=== PATIENT | male | born 1980 | race Caucasian/White ===

== ENCOUNTER 2016-02-29 21:52 | Emergency (ER) | payer MEDICAID ==
[~2016-02-29 21:52] MED LIST: HYDROmorphONE/DILAUDID 1 MG/ML SYR ONE
--- NOTE | 2016-02-29 23:06 | EDPHY ---
H & P Stated Complaint: voluntary for ETOH, depression Time Seen by Provider: 02/29/16 22:00 HPI/ROS: CHIEF COMPLAINT: alcohol intoxication HISTORY OF PRESENT ILLNESS: 35-year-old male presents emergency department by EMS and police with alcohol intoxication. Patient was telling his roommate that he did not want to live anymore. EMS brought him into the emergency department. Patient denies suicidal ideations, homicidal ideations, auditory and visual hallucinations. He states he never told anyone he was suicidal. He denies drug use. Admits to drinking alcohol today. He has no complaints. REVIEW OF SYSTEMS: A comprehensive 10 point review of systems is otherwise negative aside from elements mentioned in the history of present illness. Physical Exam Gen: Alert and Oriented, NAD HEENT: PERRL, moist mucous membranes NECK: no meningismus CV: regular rate and regular rhythm PULM: CTAB, no wheezes ABDOMEN: soft, non tender to palpation, BS present BACK: No CVA tenderness NEURO: Neurologically grossly intact, no tongue fasciculations, no tremors. EXTREMITIES: normal appearing SKIN: no rash or break in skin on exposed skin PSYCH: answers questions appropriately, denies suicidal ideation, homicidal ideation, auditory and visual hallucination Source: Patient, Police, EMS - Personal History Current Tetanus/Diphtheria Vaccine: Unsure Current Tetanus Diphtheria and Acellular Pertussis (TDAP): Unsure - Medical/Surgical History Hx Asthma: No Hx Chronic Respiratory Disease: No Hx Diabetes: No Hx Cardiac Disease: No Hx Renal Disease: No Hx Cirrhosis: No Hx Alcoholism: Yes Hx HIV/AIDS: No Hx Splenectomy or Spleen Trauma: No Other PMH: depression, seizures - Social History Smoking Status: Current every day smoker Constitutional: Initial Vital Signs Temperature (C) 36.4 C 02/29/16 22:05 Heart Rate 84 02/29/16 22:05 Respiratory Rate 18 02/29/16 22:05 Blood Pressure 123/70 H 02/29/16 22:05 O2 Sat (%) 95 02/29/16 22:05 O2 Delivery Mode Room Air Allergies/Adverse Reactions: No Known Allergies Allergy (Unverified 03/15/15 15:34) Home Medications: Medication Instructions Recorded CLONAZEPAM [CLONAZEPAM] 0.5 - 1 mg PO DAILY PRN 03/15/15 Cyclobenzaprine [Flexeril] 10 mg PO TID 03/15/15 GABAPENTIN [GABAPENTIN] 600 mg PO TID 03/15/15 QUEtiapine FUMARATE [SEROquel] 300 mg PO DAILY 03/15/15 busPIRone [Buspar] 15 mg PO BID 03/15/15 Medical Decision Making ED Course/Re-evaluation: 35-year-old male presents emergency department by EMS for alcohol intoxication and reporting suicidal thoughts to his roommate. On arrival to the emergency department the patient denies any suicidal thoughts. He denies drug use. Breathalyzer is 0.208. Patient is awake, alert, he is unsure why he is in the ED or how he got here. He has slurred speech. 0000-[facility] He continues to deny suicidal ideations. He is given return precautions and [facility] follow-up information. Departure - Departure Disposition: Home, Routine, Self-Care Clinical Impression: Alcoholic intoxication Qualifiers: Complication of substance-induced condition: uncomplicated Qualifier Code: ( F10.120) Alcohol abuse with intoxication, uncomplicated Condition: Good Instructions: Alcohol Intoxication (ED) Additional Instructions: Stop drinking alcohol, return to the emergency department for any questions or concerns. Referrals: [facility] [Outside] - As per Instructions
[2016-03-01 00:26] VITALS: BP 129/84; PULSE 94; RESP 18; TEMP 98.1; O2SAT 97
== END 2016-03-01 00:26 | disposition home or self-care (01) ==
LOC: EDUNIT#
DX: F10.120 Alcohol abuse with intoxication, uncomplicated (principal); F17.200 Nicotine dependence, unspecified, uncomplicated
CPT/HCPCS: J1170

== ENCOUNTER 2016-03-01 02:10 | Emergency (ER) | payer MEDICAID ==
[2016-03-01 02:15] VITALS: RESP 16; TEMP 98.1
[2016-03-01] MEDS ORDERED: levETIRAcetam 500 MG TAB PO ONE (02:39)
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
[2016-03-01 06:55] VITALS: BP 117/83; PULSE 110; O2SAT 93
== END 2016-03-01 06:40 | disposition home or self-care (01) ==
LOC: EDUNIT#
DX: G40.909 Epilepsy, unspecified, not intractable, without status epilepticus (principal); F10.129 Alcohol abuse with intoxication, unspecified

== ENCOUNTER 2016-03-06 20:42 | Emergency (ER) | payer MEDICAID ==
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
[2016-03-06 20:56] VITALS: TEMP 97.9
[2016-03-06 21:41] LABS: ETHANOL SERUM 473 mg/dL (0-10)
[2016-03-06] MEDS ORDERED: MVI WITH VIT K 10 ML, FOLIC ACID 2.5 MG, THIAMINE HCL 100 MG, MAGNESIUM SULFATE 2 GM in... IV ONE (21:42)
[2016-03-06] MEDS ORDERED: NS 1,000 ML IV ONE (21:45)
[2016-03-07 06:27] VITALS: BP 110/75; PULSE 80; RESP 20; O2SAT 94
== END 2016-03-07 06:28 | disposition home or self-care (01) ==
LOC: EDUNIT#
DX: F10.120 Alcohol abuse with intoxication, uncomplicated (principal)
CPT/HCPCS: 96365; G0480; J3411

== ENCOUNTER 2016-04-06 19:33 | Emergency (ER) | payer MEDICAID ==
[~2016-04-06 19:33] MED LIST changes: -HYDROmorphONE/DILAUDID 1 MG/ML SYR ONE; +levETIRAcetam 500 MG TAB PO SCH
--- NOTE | 2016-04-06 19:51 | EDPHY ---
H & P Time Seen by Provider: 04/06/16 19:50 HPI/ROS: CHIEF COMPLAINT: Needs seizure medication. HISTORY OF PRESENT ILLNESS: The patient is a 35-year-old male with a history of seizure disorder who presents from the [facility] to receive seizure medications. He does not know what dose he takes. He last took Keppra last night. His last drink of alcohol was last night. He feels mildly tremulous. He has no other complaints at this time. No recent illness or fever. Past Medical/Surgical History: Seizure disorder. Alcoholism Social History: Alcohol abuse. Smoking Status: Unknown if ever smoked Physical Exam: General Appearance: Alert, pleasant Eyes: Pupils equal and round ENT, Mouth: Mucous membranes moist Neck: Normal inspection Respiratory: Lungs are clear to auscultation Cardiovascular: Regular rate and rhythm Neurological: A&O, nonfocal, normal gait Skin: Warm and dry Extremities: normal inspection Psychiatric: Mood and affect normal Constitutional: Initial Vital Signs Temperature (C) 36.2 C 04/06/16 19:40 Heart Rate 88 04/06/16 19:40 Respiratory Rate 16 04/06/16 19:40 Blood Pressure 149/98 H 04/06/16 19:40 O2 Sat (%) 96 04/06/16 19:40 O2 Delivery Mode Room Air Allergies/Adverse Reactions: No Known Allergies Allergy (Verified 03/01/16 02:15) Home Medications: Medication Instructions Recorded CLONAZEPAM [CLONAZEPAM] 0.5 - 1 mg PO DAILY PRN 03/15/15 Cyclobenzaprine [Flexeril] 10 mg PO TID 03/15/15 GABAPENTIN [GABAPENTIN] 600 mg PO TID 03/15/15 QUEtiapine FUMARATE [SEROquel] 300 mg PO DAILY 03/15/15 busPIRone [Buspar] 15 mg PO BID 03/15/15 Gabapentin [Neurontin 300 MG (*)] 600 mg PO BID 12/06/15 QUEtiapine FUMARATE [Seroquel 300 mg PO HS 12/06/15 300mg (*)] busPIRone [Buspar (*)] 15 mg PO BID 12/06/15 clonazePAM [klonoPIN (*)] 0.5 - 1 mg PO DAILY PRN 12/06/15 levETIRAcetam [Keppra 500 mg (*)] 500 mg PO BID 12/06/15 levETIRAcetam [Keppra 500 mg (*)] 500 mg PO BID #14 tab 12/06/15 levETIRAcetam [Keppra 500 mg (*)] 500 mg PO BID #20 tab 04/06/16 AZITHROMYCIN [Z-PACK] 250 mg PO DAILY #4 tab 04/09/16 Ibuprofen 800 mg PO TID PRN #20 tablet 04/09/16 Medical Decision Making ED Course/Re-evaluation: Keppra 50mg orally given. I wrote and dispensed an rx for Keppra and for Librium. - Data Points Medications Given: Discontinued Medications Chlordiazepoxide (Librium 25 Mg Prepack#6) 1 btl TAKEHOME EDNOW ONE Stop: 04/06/16 19:57 Last Admin: 04/06/16 20:08 Dose: 1 btl Levetiracetam (Keppra) 500 mg PO EDNOW ONE Stop: 04/06/16 19:58 Last Admin: 04/06/16 20:18 Dose: 500 mg Departure - Departure Disposition: Home, Routine, Self-Care Clinical Impression: Medication requested, Seizure disorder Alcohol withdrawal Qualifiers: Complication of substance-induced condition: uncomplicated Qualified Code(s): F10.230 - Alcohol dependence with withdrawal, uncomplicated Condition: Good Instructions: Chlordiazepoxide/Clidinium (By mouth), Alcohol Withdrawal (ED) Additional Instructions: Take Keppra as prescribed. Take Librium 1 tab every 6 hours as needed. Follow up at the [facility] as discussed. Return for any serious worsening of condition. Referrals: [facility] [Outside] - As per Instructions Prescriptions: levETIRAcetam [Keppra 500 mg (*)] 500 mg PO BID #20 tab Report Scribed for: Renea Germain Report Scribed by: Tong Pink Date of Report: 04/06/16 Time of Report: 19:51 Physician Review and Approval Statement: 04/06/16 19:51 Portions of this note were transcribed by a medical aides teacher. I personally performed a history, physical exam, medical decision making, and confirmed accuracy of information the transcribed note.
[2016-04-06] MEDS ORDERED: CHLORDIAZEPOXIDE 25MG PREPK#6 BTL TAKEHOME ONE (19:56)
[2016-04-06] MEDS ORDERED: levETIRAcetam 500 MG TAB PO ONE (19:57)
[2016-04-06 20:03] VITALS: RESP 16; TEMP 97.2; O2SAT 96
[2016-04-07 05:34] VITALS: BP 145/71; PULSE 87
== END 2016-04-06 20:18 | disposition home or self-care (01) ==
DX: G40.909 Epilepsy, unspecified, not intractable, without status epilepticus (principal); F10.230 Alcohol dependence with withdrawal, uncomplicated

== ENCOUNTER 2016-04-09 14:40 | Emergency (ER) | payer MEDICAID ==
[~2016-04-09 14:40] MED LIST changes: +AZITHROMYCIN 250 MG TAB PO SCH; +IBUPROFEN 800 MG TAB PO SCH; -levETIRAcetam 500 MG TAB PO SCH
[2016-04-09 14:45] VITALS: RESP 18; TEMP 100.2
[2016-04-09] MEDS ORDERED: DEXAMETHASONE 10 MG/ML VIAL PO ONE (15:47)
[2016-04-09] MEDS ORDERED: AZITHROMYCIN 250 MG TAB PO ONE (15:47)
[2016-04-09] MEDS ORDERED: IBUPROFEN 200 MG TAB PO ONE (15:48)
--- NOTE | 2016-04-09 15:52 | EDPHY ---
H & P Stated Complaint: 3 days headache, sore throat, sweats, fevers Time Seen by Provider: 04/09/16 15:43 HPI/ROS: CHIEF COMPLAINT: Sore throat, headache HISTORY OF PRESENT ILLNESS: Patient is a 35-year-old man with a history of schizophrenia , alcohol abuse and seizures who comes to the emergency department complaining of a sore throat for last 3 days. He states that he is starting to have a headache as well. He does not have any neurologic deficits. No vision changes. No sinus congestion. No cough or shortness of breath. No chest pain or abdominal pain. REVIEW OF SYSTEMS: Constitutional: denies: chills, fever, recent illness, recent injury EENTM: See HPI,denies: blurred vision, double vision, nose congestion Respiratory: denies: cough, shortness of breath Cardiac: denies: chest pain, irregular heart rate, lightheadedness, palpitations Gastrointestinal/Abdominal: denies: abdominal pain, diarrhea, nausea, vomiting, blood streaked stools Genitourinary: denies: dysuria, frequency, hematuria, pain Musculoskeletal: denies: joint pain, muscle pain Skin: denies: lesions, rash, jaundice, bruising Neurological: denies: headache, numbness, paresthesia, tingling, dizziness, weakness Hematologic/Lymphatic: denies: blood clots, easy bleeding, easy bruising Immunologic/allergic: denies: HIV/AIDS, transplant EXAM: GENERAL: Well-appearing, well-nourished and in no acute distress. HEAD: Atraumatic, normocephalic. EYES: Pupils equal round and reactive to light, extraocular movements intact, sclera anicteric, conjunctiva are normal. ENT: Erythematous pharynx, exudate, no visible abscess or distortion, TMs normal, nares patent, Moist mucous membranes. NECK: Normal range of motion, supple without lymphadenopathy or JVD. LUNGS: Breath sounds clear to auscultation bilaterally and equal. No wheezes rales or rhonchi. HEART: Regular rate and rhythm without murmurs, rubs or gallops. ABDOMEN: Soft, nontender, normoactive bowel sounds. No guarding, no rebound. No masses appreciated. BACK: No CVA tenderness, no spinal tenderness, step-offs or deformities EXTREMITIES: Normal range of motion, no pitting or edema. No clubbing or cyanosis. NEUROLOGICAL: Cranial nerves II through XII grossly intact. Normal speech, normal gait. 5/5 strength, normal movement in all extremities, normal sensation PSYCH: Normal mood, normal affect. SKIN: Warm, dry, normal turgor, no visible rashes or lesions. Source: Patient Exam Limitations: No limitations - Personal History Current Tetanus Diphtheria and Acellular Pertussis (TDAP): Yes - Medical/Surgical History Hx Asthma: No Hx Chronic Respiratory Disease: No Hx Diabetes: No Hx Cardiac Disease: No Hx Renal Disease: No Hx Cirrhosis: No Hx Alcoholism: No Hx HIV/AIDS: No Hx Splenectomy or Spleen Trauma: No Other PMH: depression, seizures, ETOH ABUSE , anxiety, schizoaffetive - Family History Significant Family History: No pertinent family hx - Social History Smoking Status: Current every day smoker Alcohol Use: Sober Drug Use: None Constitutional: Initial Vital Signs Temperature (C) 37.9 C 04/09/16 14:43 Heart Rate 118 H 04/09/16 14:43 Respiratory Rate 18 04/09/16 14:43 Blood Pressure 105/77 04/09/16 14:43 O2 Sat (%) 96 04/09/16 14:43 O2 Delivery Mode Room Air Allergies/Adverse Reactions: No Known Allergies Allergy (Verified 03/01/16 02:15) Home Medications: Medication Instructions Recorded CLONAZEPAM [CLONAZEPAM] 0.5 - 1 mg PO DAILY PRN 03/15/15 Cyclobenzaprine [Flexeril] 10 mg PO TID 03/15/15 GABAPENTIN [GABAPENTIN] 600 mg PO TID 03/15/15 QUEtiapine FUMARATE [SEROquel] 300 mg PO DAILY 03/15/15 busPIRone [Buspar] 15 mg PO BID 03/15/15 Gabapentin [Neurontin 300 MG (*)] 600 mg PO BID 12/06/15 QUEtiapine FUMARATE [Seroquel 300 mg PO HS 12/06/15 300mg (*)] busPIRone [Buspar (*)] 15 mg PO BID 12/06/15 clonazePAM [klonoPIN (*)] 0.5 - 1 mg PO DAILY PRN 12/06/15 levETIRAcetam [Keppra 500 mg (*)] 500 mg PO BID 12/06/15 levETIRAcetam [Keppra 500 mg (*)] 500 mg PO BID #14 tab 12/06/15 levETIRAcetam [Keppra 500 mg (*)] 500 mg PO BID #20 tab 04/06/16 AZITHROMYCIN [Z-PACK] 250 mg PO DAILY #4 tab 04/09/16 Ibuprofen 800 mg PO TID PRN #20 tablet 04/09/16 Medical Decision Making ED Course/Re-evaluation: Patient clearly has pharyngitis likely strep throat. I will treat him with antibiotics, steroids and pain medication. He is happy with this plan and declines further workup or treatment at this time. Discussed indications for returning to the emergency department. He is eating and drinking without any difficulty here in the emergency department. No stridor or difficulty breathing. He is requesting a prescription for ibuprofen as well. Differential Diagnosis: Partial list of the Differential diagnosis considered include but were not limited to; strep throat, pharyngitis, tonsillitis, peritonsillar abscess and although unlikely based on the history and physical exam, I also considered meningitis, phlegmon, intracranial abscess, thrombosis. I discussed these differential diagnoses and the plan with the patient as well as the usual and expected course. The patient understands that the diagnosis is provisional and that in medicine we are not always correct and that further workup is often warranted. Usual and customary warnings were given. All of the patient's questions were answered. The patient was instructed to return to the emergency department should the symptoms at all worsen or return, otherwise to followup with the physician as we discussed. - Data Points Medications Given: Discontinued Medications Azithromycin (Zithromax) 500 mg PO EDNOW ONE PRN Reason: Protocol Stop: 04/09/16 15:48 Last Admin: 04/09/16 15:54 Dose: 500 mg Dexamethasone (Decadron Injection) 10 mg PO EDNOW ONE Stop: 04/09/16 15:48 Last Admin: 04/09/16 15:54 Dose: 10 mg Ibuprofen (Motrin) 800 mg PO EDNOW ONE Stop: 04/09/16 15:49 Last Admin: 04/09/16 15:54 Dose: 800 mg Departure - Departure Disposition: Home, Routine, Self-Care Clinical Impression: Pharyngitis Qualifiers: Pharyngitis/tonsillitis etiology: unspecified etiology Qualified Code(s): J02.9 - Acute pharyngitis, unspecified Condition: Fair Instructions: Pharyngitis (ED) Referrals: [facility] [Other] - As per Instructions Prescriptions: AZITHROMYCIN [Z-PACK] 250 mg PO DAILY #4 tab Ibuprofen 800 mg PO TID PRN #20 tablet PRN Reason: Pain, Moderate
[2016-04-09 16:12] VITALS: BP 157/79; PULSE 108; O2SAT 98
== END 2016-04-09 16:12 | disposition home or self-care (01) ==
DX: J02.9 Acute pharyngitis, unspecified (principal); F17.200 Nicotine dependence, unspecified, uncomplicated

== ENCOUNTER 2016-04-14 19:31 | Emergency (ER) | payer MEDICAID ==
[~2016-04-14 19:31] MED LIST changes: -AZITHROMYCIN 250 MG TAB PO SCH; +IBUPROFEN 600 MG TAB PO SCH; -IBUPROFEN 800 MG TAB PO SCH
[2016-04-14 19:36] VITALS: RESP 16; TEMP 97.9
--- NOTE | 2016-04-14 20:08 | EDPHY ---
H & P Smoking Status: Current every day smoker Time Seen by Provider: 04/14/16 19:54 HPI/ROS: CHIEF COMPLAINT: Chronic neck pain, aphthous ulcer lower lip HISTORY OF PRESENT ILLNESS: 35-year-old male presents to the emergency department by private vehicle complaining of painful sore to the inside of his lower lip for the last 3 or 4 days. He has been using salt water and peroxide without relief. Patient denies dysphagia. Denies facial swelling. No fevers or chills. No URI symptoms. No chest pain or difficulty breathing. Patient also has a history of chronic neck pain and has been out of his cyclobenzaprine pain for spasms over last 1 month. He feels the same ongoing chronic neck pain. He denies any new trauma or injury. He denies back pain. Denies paresthesias in his upper lower extremities. Denies feelings of weakness in his upper extremities. REVIEW OF SYSTEMS: Constitutional: No fever, no chills. Eyes: No double or blurry vision. ENT: Painful sores in mouth as above. No sore throat. Respiratory: No cough, no shortness of breath. Cardiac: No chest pain. Gastrointestinal: No abdominal pain, vomiting or diarrhea. Genitourinary: No dysuria. Musculoskeletal: Chronic neck pain as above. No back pain. Skin: No rashes. Neurological: No headache. (MelodyDawn liang) Past Medical/Surgical History: Depression, anxiety, schizoaffective disorder, alcohol abuse, chronic neck and back pain (MelodyDawn liang) Social History: Homeless, currently staying at the [facility] in the transition program. (Dawn Judge) Physical Exam: General Appearance: Alert, no distress. Eyes: Pupils equal and round. Extraocular motions are all intact. ENT: Mouth: Mucous membranes moist. Small ulcerative lesion noted to the frenulum of the inside of the lower lip. No surrounding redness. No bleeding. Poor dentition, missing numerous teeth. Respiratory: No wheezing, rhonchi, or rales, lungs are clear to auscultation. Cardiovascular: Regular rate and rhythm. Gastrointestinal: Abdomen is soft and nontender, no masses, no rebound or guarding, bowel sounds normal. Neurological: Alert and oriented x 3, cranial nerves II through XII grossly intact Skin: Warm and dry, no rashes. Musculoskeletal: Nontender to palpate along the cervical, thoracic or lumbar spine. Neck is supple. In a wheelchair. Extremities: Full range of motion and no peripheral edema. Psychiatric: Patient is oriented X 3, there is no agitation. (Dawn Judge) Constitutional: Initial Vital Signs Temperature (C) 36.6 C 04/14/16 19:33 Heart Rate 70 04/14/16 19:33 Respiratory Rate 16 04/14/16 19:33 Blood Pressure 138/100 H 04/14/16 19:33 O2 Sat (%) 99 04/14/16 19:33 O2 Delivery Mode Room Air Allergies/Adverse Reactions: No Known Allergies Allergy (Verified 03/01/16 02:15) Home Medications: Medication Instructions Recorded CLONAZEPAM [CLONAZEPAM] 0.5 - 1 mg PO DAILY PRN 03/15/15 Cyclobenzaprine [Flexeril] 10 mg PO TID 03/15/15 GABAPENTIN [GABAPENTIN] 600 mg PO TID 03/15/15 QUEtiapine FUMARATE [SEROquel] 300 mg PO DAILY 03/15/15 busPIRone [Buspar] 15 mg PO BID 03/15/15 Gabapentin [Neurontin 300 MG (*)] 600 mg PO BID 12/06/15 QUEtiapine FUMARATE [Seroquel 300 mg PO HS 12/06/15 300mg (*)] busPIRone [Buspar (*)] 15 mg PO BID 12/06/15 clonazePAM [klonoPIN (*)] 0.5 - 1 mg PO DAILY PRN 12/06/15 levETIRAcetam [Keppra 500 mg (*)] 500 mg PO BID 12/06/15 levETIRAcetam [Keppra 500 mg (*)] 500 mg PO BID #14 tab 12/06/15 levETIRAcetam [Keppra 500 mg (*)] 500 mg PO BID #20 tab 04/06/16 AZITHROMYCIN [Z-PACK] 250 mg PO DAILY #4 tab 04/09/16 Ibuprofen 800 mg PO TID PRN #20 tablet 04/09/16 Cyclobenzaprine [Flexeril] 10 mg PO TIDPRN PRN #12 tab 04/14/16 Ibuprofen 600 mg PO TID PRN #30 tablet 04/14/16 Medical Decision Making ED Course/Re-evaluation: 35-year-old male presents with painful sores inside his mouth. Clinically I think this patient has an aphthous ulcer. I recommended using [id number] Orajel or Zilactin topically. I encouraged him to return if he developed facial swelling, increasing pain, fever, purulent drainage or any other signs of infection. The patient has a history of chronic neck and back pain. He is requesting prescription for cyclobenzaprine. I do not think x-rays are indicated. The patient has no new reported trauma. (Dawn Judge) This patient was primarily evaluated and management physician phlebotomist lab assistant. I have reviewed the chart and agree with the plan of care. I am the secondary supervising physician. (Wendy Newman) Differential Diagnosis: Neck pain including but not limited to muscular pain, herniated disc, spine fracture (Dawn Judge) - Data Points Medications Given: Discontinued Medications Cyclobenzaprine HCl (Flexeril 10 Mg Prepack#3) [facility] Stop: 04/14/16 20:13 Last Admin: 04/14/16 20:30 Dose: 1 btl Departure - Departure Disposition: Home, Routine, Self-Care Clinical Impression: Oral aphthous ulcer, Chronic neck pain Condition: Good Instructions: Cyclobenzaprine (By mouth), Canker Sores (ED), Neck Pain (ED) Additional Instructions: Ibuprofen 600 mg every 8 hours as needed for pain. Cyclobenzaprine as needed for muscular spasm. Return to the emergency department if you developed difficulty swallowing, facial swelling, fevers or chills, or if you feel worse in any way. Referrals: Bonny Camp MD [Medical Doctor] - 2-3 days, if not improved (Primary care provider probation counselor) Prescriptions: Cyclobenzaprine [Flexeril] 10 mg PO TIDPRN PRN #12 tab PRN Reason: Spasms Ibuprofen 600 mg PO TID PRN #30 tablet PRN Reason: Pain, Moderate
[2016-04-14] MEDS ORDERED: CYCLOBENZAPRINE 10MG PREPACK#3 BTL TAKEHOME ONE (20:12)
[2016-04-14 21:23] VITALS: BP 122/74; PULSE 71; O2SAT 96
== END 2016-04-14 21:24 | disposition home or self-care (01) ==
DX: M54.2 Cervicalgia (principal); G89.29 Other chronic pain; K12.0 Recurrent oral aphthae

== ENCOUNTER 2016-11-03 17:57 | Emergency (ER) | payer MEDICAID ==
--- NOTE | 2016-11-03 18:30 | EDPHY ---
H & P Stated Complaint: ETOH, possibly heroin? Source: Patient Exam Limitations: No limitations - Personal History Current Tetanus/Diphtheria Vaccine: Unsure Current Tetanus Diphtheria and Acellular Pertussis (TDAP): Unsure - Medical/Surgical History Hx Asthma: No Hx Chronic Respiratory Disease: No Hx Diabetes: No Hx Cardiac Disease: No Hx Renal Disease: No Hx Cirrhosis: No Hx Alcoholism: No Hx HIV/AIDS: No Hx Splenectomy or Spleen Trauma: No Other PMH: depression, epilepsy, ETOH ABUSE , anxiety, schizoaffective - Family History Significant Family History: No pertinent family hx - Social History Smoking Status: Current every day smoker Alcohol Use: Heavy Time Seen by Provider: 11/03/16 18:21 HPI/ROS: CHIEF COMPLAINT: Unresponsive HISTORY OF PRESENT ILLNESS: The patient is a 36-year-old man who [place] unresponsive by bystanders. Police arrived and were able to get him to arouse minimally with stimulation. He was given 4 mg of IV Narcan and had a moderate response according to EMS. They suspect alcohol intoxication. The patient is not been cooperative with questioning. REVIEW OF SYSTEMS: Unable to obtain secondary to condition EXAM: GENERAL: Thin, well-nourished and in no acute distress. Urinated on bed and floor HEAD: Atraumatic, normocephalic. EYES: Pupils equal round and reactive to light, extraocular movements intact, sclera anicteric, conjunctiva are normal. ENT: TMs normal, nares patent, oropharynx clear without exudates. Moist mucous membranes. NECK: Normal range of motion, supple without lymphadenopathy or JVD. LUNGS: Breath sounds clear to auscultation bilaterally and equal. No wheezes rales or rhonchi. HEART: Regular rate and rhythm without murmurs, rubs or gallops. ABDOMEN: Soft, nontender, normoactive bowel sounds. No guarding, no rebound. No masses appreciated. BACK: No CVA tenderness, no spinal tenderness, step-offs or deformities EXTREMITIES: Normal range of motion, no pitting or edema. No clubbing or cyanosis. NEUROLOGICAL: Cranial nerves II through XII grossly intact. Normal speech 5/5 strength, normal movement in all extremities, normal sensation PSYCH: Will talk but will not answer questions states that it is not important and that we are Blah, Blah, Blah SKIN: Warm, dry, normal turgor, no visible rashes or lesions. (Aaron Quarles) Constitutional: Initial Vital Signs Temperature (C) 36.7 C 11/03/16 18:05 Heart Rate 99 11/03/16 18:05 Respiratory Rate 18 11/03/16 18:05 Blood Pressure 129/89 H 11/03/16 18:05 O2 Sat (%) 93 11/03/16 18:05 O2 Delivery Mode Room Air O2 (L/minute) 2 Allergies/Adverse Reactions: trazodone Allergy (Verified 11/03/16 18:07) Home Medications: Medication Instructions Recorded CLONAZEPAM [CLONAZEPAM] 0.5 - 1 mg PO DAILY PRN 03/15/15 Cyclobenzaprine [Flexeril] 10 mg PO TID 03/15/15 GABAPENTIN [GABAPENTIN] 600 mg PO TID 03/15/15 QUEtiapine FUMARATE [SEROquel] 300 mg PO DAILY 03/15/15 busPIRone [Buspar] 15 mg PO BID 03/15/15 Gabapentin [Neurontin 300 MG (*)] 600 mg PO BID 12/06/15 QUEtiapine FUMARATE [Seroquel 300 mg PO HS 12/06/15 300mg (*)] busPIRone [Buspar (*)] 15 mg PO BID 12/06/15 clonazePAM [klonoPIN (*)] 0.5 - 1 mg PO DAILY PRN 12/06/15 levETIRAcetam [Keppra 500 mg (*)] 500 mg PO BID 12/06/15 levETIRAcetam [Keppra 500 mg (*)] 500 mg PO BID #14 tab 12/06/15 levETIRAcetam [Keppra 500 mg (*)] 500 mg PO BID #20 tab 04/06/16 AZITHROMYCIN [Z-PACK] 250 mg PO DAILY #4 tab 04/09/16 Ibuprofen 800 mg PO TID PRN #20 tablet 04/09/16 Cyclobenzaprine [Flexeril] 10 mg PO TIDPRN PRN #12 tab 04/14/16 Ibuprofen 600 mg PO TID PRN #30 tablet 04/14/16 Haldol 11/03/16 Risperdal 11/03/16 Medical Decision Making ED Course/Re-evaluation: 1224 I received sign-out on this patient from Dr. Quarles. He was able to walk with a steady gait. He will be discharged with the police to [facility]. (Navya Lange) The patient will not answer any questions for me. I will attempt to obtain an alcohol level. It is unclear to me whether not he had a response to Narcan. We will observe. (Aaron Quarles) Differential Diagnosis: Partial list of the Differential diagnosis considered include but were not limited to; alcohol intoxication, heroin abuse and although unlikely based on the history and physical exam, I also considered head injury, infection, assault. (Aaron Quarles) Departure - Departure Disposition: Law Enforcement/Court/Snf Clinical Impression: Alcoholic intoxication Qualifiers: Complication of substance-induced condition: with delirium Qualified Code(s): F10.921 - Alcohol use, unspecified with intoxication delirium Condition: Good Instructions: Alcohol Intoxication (ED) Referrals: [facility] [Outside] - As per Instructions
[2016-11-03 18:51] LABS: ETHANOL SERUM 424 mg/dL (0-10)
[2016-11-04 00:33] VITALS: BP 112/67; PULSE 74; RESP 16; TEMP 98.2; O2SAT 93
== END 2016-11-04 00:33 ==
LOC: EDUNIT#
DX: F10.921 Alcohol use, unspecified with intoxication delirium (principal); F17.200 Nicotine dependence, unspecified, uncomplicated
CPT/HCPCS: G0480

== ENCOUNTER 2016-11-13 20:59 | Emergency (ER) | payer MEDICAID ==
[2016-11-13 21:11] VITALS: BP 153/108; PULSE 90; RESP 20; TEMP 98.8; O2SAT 98
--- NOTE | 2016-11-13 22:12 | EDPHY ---
H & P Stated Complaint: neck and back spasms, abcesssed tooth and skin sore on finger Time Seen by Provider: 11/13/16 21:50 HPI/ROS: Chief Complaint: Neck spasms, pain HPI: 36-year-old homeless male presenting from the [facility] with complaints of neck spasming and mouth pain. He has a history of chronic back pain usually takes Flexeril for this. He has been out of his medications and is complaining of neck pain. He is currently awaiting transfer to an inpatient treatment program is concerned he will not be with his medications there. He is also complaining of pain in his upper gums. He is a dentate in his upper teeth but has his resume placed in the frequently gets an abscess there. He has not been able to follow up with a dentist. He denies any fevers or chills. No nausea or vomiting. No new numbness or weakness. He has not been taking any ibuprofen as it upsets his stomach. Pain is currently a 7/10. ROS: 10 point Review of Systems is negative except as noted in the HPI. PMH: Chronic back pain, alcoholism Social History: Positive smoking, history of chronic polysubstance abuse, currently awaiting a trip to program. Family History: non-contributory Physical Exam: Gen: Awake, Alert, No Distress HEENT: Nose: no rhinorrhea Eyes: PERRLA, EOMI Mouth: Moist mucosa upper mouth a dentate. There is some tenderness and swelling in the left upper gumline. There is no fluctuance or pointing. Neck: Supple, no JVD, spot left paraspinal muscle spasm to palpation reproducing presenting complaint. No midline tenderness Chest: nontender, lungs clear to auscultation Heart: S1, S2 normal, no murmur Abd: Soft, non-tender, no guarding Back: no CVA tenderness, no midline tenderness Ext: no edema, non-tender, right finger there is a small lesion on his right middle finger without purulence or discharge approximately 5 mm Skin: no rash Neuro: CN II-XII intact, Sensation grossly intact, Strength 5/5 in bilateral upper and lower extremities - Personal History Current Tetanus Diphtheria and Acellular Pertussis (TDAP): Unsure - Medical/Surgical History Hx Asthma: No Hx Chronic Respiratory Disease: No Hx Diabetes: No Hx Cardiac Disease: No Hx Renal Disease: No Hx Cirrhosis: No Hx Alcoholism: No Hx HIV/AIDS: No Hx Splenectomy or Spleen Trauma: No Other PMH: depression, epilepsy, ETOH ABUSE , anxiety, schizoaffective - Social History Smoking Status: Current every day smoker Constitutional: Initial Vital Signs Temperature (C) 37.1 C 11/13/16 21:07 Heart Rate 90 11/13/16 21:07 Respiratory Rate 20 11/13/16 21:07 Blood Pressure 153/108 H 11/13/16 21:07 O2 Sat (%) 98 11/13/16 21:07 O2 Delivery Mode Room Air Allergies/Adverse Reactions: trazodone Allergy (Verified 11/13/16 21:07) Home Medications: Medication Instructions Recorded CLONAZEPAM [CLONAZEPAM] 0.5 - 1 mg PO DAILY PRN 03/15/15 Cyclobenzaprine [Flexeril] 10 mg PO TID 03/15/15 GABAPENTIN [GABAPENTIN] 600 mg PO TID 03/15/15 QUEtiapine FUMARATE [SEROquel] 300 mg PO DAILY 03/15/15 busPIRone [Buspar] 15 mg PO BID 03/15/15 Gabapentin [Neurontin 300 MG (*)] 600 mg PO BID 12/06/15 QUEtiapine FUMARATE [Seroquel 300 mg PO HS 12/06/15 300mg (*)] busPIRone [Buspar (*)] 15 mg PO BID 12/06/15 clonazePAM [klonoPIN (*)] 0.5 - 1 mg PO DAILY PRN 12/06/15 levETIRAcetam [Keppra 500 mg (*)] 500 mg PO BID 12/06/15 levETIRAcetam [Keppra 500 mg (*)] 500 mg PO BID #14 tab 12/06/15 levETIRAcetam [Keppra 500 mg (*)] 500 mg PO BID #20 tab 04/06/16 AZITHROMYCIN [Z-PACK] 250 mg PO DAILY #4 tab 04/09/16 Ibuprofen 800 mg PO TID PRN #20 tablet 04/09/16 Cyclobenzaprine [Flexeril] 10 mg PO TIDPRN PRN #12 tab 04/14/16 Ibuprofen 600 mg PO TID PRN #30 tablet 04/14/16 Haldol 11/03/16 Risperdal 11/03/16 Amoxicillin 500 mg PO TID 10 Days cap 11/13/16 Cyclobenzaprine [Flexeril 10 MG 10 mg PO TID PRN #15 tab 11/13/16 (*)] Medical Decision Making ED Course/Re-evaluation: 36-year-old male with symptoms consistent with a dental abscess. He is also complaining of back pain in usually takes Flexeril for this. He is currently awaiting transfer [facility] to an inpatient program. I have explained to him that I cannot write him for long-term prescriptions for consent him home with about several days worth prescription. Will write him for antibiotics here. He does not have the means emergencies at this time. I have explained that I cannot provide him from the Flexeril here by I will be able to provide him with the antibiotic. I have given him referrals to the [facility] and to dental aid for further follow-up. Departure - Departure Disposition: Home, Routine, Self-Care Clinical Impression: Muscle spasm, Dental abscess Condition: Good Instructions: Dental Abscess (ED), Muscle Spasm (ED), Amoxicillin (By mouth) Additional Instructions: Please take your full course of antibiotics. Follow up with dental aid for further evaluation of your mouth pain. Follow-up with the [facility] for management of your chronic neck and back pain. Return to the emergency department for increasing pain, fevers, chills, numbness , weakness, or any other concerns. Referrals: NONE *PRIMARY CARE P,. [Primary Care Provider] - As per Instructions Dental Aid [Outside] - As per Instructions [facility],. [Clinic] - As per Instructions Prescriptions: Amoxicillin 500 mg PO TID 10 Days cap Cyclobenzaprine [Flexeril 10 MG (*)] 10 mg PO TID PRN #15 tab PRN Reason: Spasms
== END 2016-11-13 22:50 | disposition home or self-care (01) ==
DX: M62.838 Other muscle spasm (principal); K04.7 Periapical abscess without sinus; F17.200 Nicotine dependence, unspecified, uncomplicated

== ENCOUNTER 2017-01-01 17:22 | Emergency (ER) | payer MEDICAID ==
[~2017-01-01 17:22] MED LIST changes: -IBUPROFEN 600 MG TAB PO SCH; +levETIRAcetam 500 MG TAB PO SCH
[2017-01-01] MEDS ORDERED: LORazepam 1 MG TAB PO ONE (17:47)
--- NOTE | 2017-01-01 17:52 | EDPHY ---
H & P Stated Complaint: sent from [facility] to be "stabilized on my meds" - Personal History Current Tetanus/Diphtheria Vaccine: Unsure Current Tetanus Diphtheria and Acellular Pertussis (TDAP): Unsure - Medical/Surgical History Hx Asthma: No Hx Chronic Respiratory Disease: No Hx Diabetes: No Hx Cardiac Disease: No Hx Renal Disease: No Hx Cirrhosis: No Hx Alcoholism: No Hx HIV/AIDS: No Hx Splenectomy or Spleen Trauma: No Other PMH: depression, epilepsy, ETOH ABUSE , anxiety, schizoaffective - Social History Smoking Status: Current every day smoker Time Seen by Provider: 01/01/17 17:41 HPI/ROS: CHIEF COMPLAINT: "I am withdrawing " HISTORY OF PRESENT ILLNESS: 36-year-old homeless male history of alcoholism, seizure disorder, seen at [facility] last evening [facility], sent back to the emergency department at [facility] for acute alcohol withdrawal symptoms. No seizure. No hallucination. No nausea or vomiting. He needs refill of his Keppra and needs to return with Librium. Denies suicidal or homicidal ideation. REVIEW OF SYSTEMS: A ten point review of systems was performed and is negative with the exception of the items mentioned in the HPI PAST MEDICAL & SURGICAL HISTORY: Seizure disorder. Alcoholism. Homelessness. SOCIAL HISTORY: Last drink of alcohol was last evening PHYSICAL EXAM (Prior to examination, patient consented to physical exam, hands were washed and my usual and customary physical exam procedures followed) 1) GENERAL: Well-developed, well-nourished, alert and oriented. Appears to be in no acute distress. Observed ambulating with stable steady gait. Tremulous. 2) HEAD: Normocephalic, atraumatic 3) HEENT: Pupils equal, round, reactive to light bilaterally. Sclera anicteric. Nasopharynx, oropharynx, clear, no lesions. No trauma 4) NECK: Full range of motion, no meningeal signs. 5) LUNGS: Clear auscultation bilaterally, no wheezes, no rhonchi, no retractions. 6) HEART: Regular rate and rhythm, no murmur, no heave, no gallop. 7) ABDOMEN: No guarding, no rebound, no focal tenderness, 8) MUSCULOSKELETAL: No peripheral edema or discoloration. 9) BACK: no visual or palpable abnormality. 10) SKIN: No rash, no petechiae. 11) Psychiatric: Patient is oriented X 3, there is no agitation. Answering questions appropriately. Tremulous. DIFFERENTIAL DIAGNOSIS: in no particular order including but not limited to acute alcohol withdrawal, delirium tremens, seizure disorder (Megan,Tori Greene) Constitutional: Initial Vital Signs Temperature (C) 37.0 C 01/01/17 17:25 Heart Rate 112 H 01/01/17 17:25 Respiratory Rate 16 01/01/17 17:25 Blood Pressure 149/87 H 01/01/17 17:25 O2 Sat (%) 98 01/01/17 17:25 O2 Delivery Mode Room Air Allergies/Adverse Reactions: trazodone Allergy (Verified 11/13/16 21:07) Home Medications: Medication Instructions Recorded CLONAZEPAM [CLONAZEPAM] 0.5 - 1 mg PO DAILY PRN 03/15/15 Cyclobenzaprine [Flexeril] 10 mg PO TID 03/15/15 GABAPENTIN [GABAPENTIN] 600 mg PO TID 03/15/15 QUEtiapine FUMARATE [SEROquel] 300 mg PO DAILY 03/15/15 busPIRone [Buspar] 15 mg PO BID 03/15/15 Gabapentin [Neurontin 300 MG (*)] 600 mg PO BID 12/06/15 QUEtiapine FUMARATE [Seroquel 300 mg PO HS 12/06/15 300mg (*)] busPIRone [Buspar (*)] 15 mg PO BID 12/06/15 clonazePAM [klonoPIN (*)] 0.5 - 1 mg PO DAILY PRN 12/06/15 levETIRAcetam [Keppra 500 mg (*)] 500 mg PO BID 12/06/15 levETIRAcetam [Keppra 500 mg (*)] 500 mg PO BID #14 tab 12/06/15 levETIRAcetam [Keppra 500 mg (*)] 500 mg PO BID #20 tab 04/06/16 AZITHROMYCIN [Z-PACK] 250 mg PO DAILY #4 tab 04/09/16 Ibuprofen 800 mg PO TID PRN #20 tablet 04/09/16 Cyclobenzaprine [Flexeril] 10 mg PO TIDPRN PRN #12 tab 04/14/16 Ibuprofen 600 mg PO TID PRN #30 tablet 04/14/16 Haldol 11/03/16 Risperdal 11/03/16 Amoxicillin 500 mg PO TID 10 Days cap 11/13/16 Cyclobenzaprine [Flexeril 10 MG 10 mg PO TID PRN #15 tab 11/13/16 (*)] levETIRAcetam [Keppra 500 mg (*)] 500 mg PO BID #8 tab 01/01/17 Medical Decision Making ED Course/Re-evaluation: Care of patient under supervision of secondary supervising physician Dr Andrew . manager trading has consulted. Today is Monday. Will give the patient 4 days of Keppra. [facility] will [facility]. He will be given benzodiazepine in the ER and discharged back to the [facility] with Librium. Doubt delirium tremens. (Tori Guzman) Other Provider: The patient was evaluated and managed by the Physician Engine Lathe Set Up Operator Tool/ Nurse Practitioner. My co-signature indicates that I have reviewed this chart and I agree with the findings and plan of care as documented. I am the secondary supervising physician. (Amy Andrew) - Data Points Medications Given: Discontinued Medications Levetiracetam (Keppra) 500 mg PO EDNOW ONE Stop: 01/01/17 17:54 Last Admin: 01/01/17 17:57 Dose: 500 mg Lorazepam (Ativan) 2 mg PO EDNOW ONE Stop: 01/01/17 17:48 Last Admin: 01/01/17 17:51 Dose: 2 mg Departure - Departure Disposition: Home, Routine, Self-Care Clinical Impression: Alcohol withdrawal, Seizure disorder, Medicine refill Condition: Good Instructions: Chlordiazepoxide/Clidinium (By mouth), Epilepsy (ED), Alcohol Withdrawal (ED), Medicine Refill (ED) Additional Instructions: Recommend you follow up [facility] for further refills of your Keppra. Please consider long-term sobriety from alcohol. Referrals: [facility],. [Clinic] - 1-2 days without fail Prescriptions: levETIRAcetam [Keppra 500 mg (*)] 500 mg PO BID #8 tab
[2017-01-01] MEDS ORDERED: levETIRAcetam 500 MG TAB PO ONE (17:53)
[2017-01-01] MEDS ORDERED: CHLORDIAZEPOXIDE 25MG PREPK#6 BTL TAKEHOME ONE (18:00)
--- NOTE | 2017-01-01 18:41 | ASMTCMCOM ---
CM Note CM Note Notes: Patient presents to the ED from Withdrawal Management at [facility] for neck pain/spasms. Patient also requesting his Keppra medication as he has lost his prescription. Patient given Keppra and Ativan in the ED and his Keppra doses for 8 days MAP'd and provided to patient. Patient to dc back to with pre-pack for Librium. CM available for further assistance. Date Signed: 01/01/2017 06:41 PM Electronically Signed By:Richa Redd RN
[2017-01-01 19:47] VITALS: BP 138/77; PULSE 89; RESP 18; TEMP 97.9; O2SAT 96
== END 2017-01-01 19:46 | disposition home or self-care (01) ==
DX: G40.909 Epilepsy, unspecified, not intractable, without status epilepticus (principal); F10.230 Alcohol dependence with withdrawal, uncomplicated; F17.200 Nicotine dependence, unspecified, uncomplicated; Z76.0 Encounter for issue of repeat prescription

== ENCOUNTER 2017-01-30 22:21 | Emergency (ER) | payer MEDICAID ==
[2017-01-30 22:27] VITALS: BP 142/89; PULSE 135; RESP 16; TEMP 98.4; O2SAT 94
--- NOTE | 2017-01-30 22:55 | EDPHY ---
H & P Stated Complaint: Sent by [facility] for tachycardia Time Seen by Provider: 01/30/17 22:43 HPI/ROS: Chief Complaint: Alcohol withdrawal HPI: 36-year-old male with a history of a seizure disorder and chronic alcoholism [facility] with [facility]. Patient states his last drink was earlier today. He has had seizures from alcohol withdrawal in the past. He has run out of his Keppra. Denies any seizures today. No nausea or vomiting. No fevers or chills. No recent falls or head injuries. No chest pain or shortness of breath. Does feel like he is in some moderate withdrawals at this time. ROS: 10 point Review of Systems is negative except as noted in the HPI. PMH: Seizure disorder, chronic alcohol abuse Social History: Positive smoking, daily heavy alcohol, no recreational drug use Family History: non-contributory Physical Exam: Gen: Awake, Alert, No Distress HEENT: Nose: no rhinorrhea Eyes: PERRLA, EOMI Mouth: Moist mucosa Neck: Supple, no JVD Chest: nontender, lungs clear to auscultation Heart: S1, S2 normal, no murmur Abd: Soft, non-tender, no guarding Back: no CVA tenderness, no midline tenderness Ext: no edema, non-tender Skin: no rash Neuro: CN II-XII intact, Sensation grossly intact, Strength 5/5 in bilateral upper and lower extremities - Personal History Current Tetanus/Diphtheria Vaccine: Unsure Current Tetanus Diphtheria and Acellular Pertussis (TDAP): Unsure - Medical/Surgical History Hx Asthma: No Hx Chronic Respiratory Disease: No Hx Diabetes: No Hx Cardiac Disease: No Hx Renal Disease: No Hx Cirrhosis: No Hx Alcoholism: No Hx HIV/AIDS: No Hx Splenectomy or Spleen Trauma: No Other PMH: depression, epilepsy, ETOH ABUSE , anxiety, schizoaffective - Social History Smoking Status: Current every day smoker Constitutional: Initial Vital Signs Temperature (C) 36.9 C 01/30/17 22:24 Heart Rate 135 H 01/30/17 22:24 Respiratory Rate 16 01/30/17 22:24 Blood Pressure 142/89 H 01/30/17 22:24 O2 Sat (%) 94 01/30/17 22:24 O2 Delivery Mode Room Air Allergies/Adverse Reactions: trazodone Allergy (Verified 11/13/16 21:07) Home Medications: Medication Instructions Recorded CLONAZEPAM [CLONAZEPAM] 0.5 - 1 mg PO DAILY PRN 03/15/15 Cyclobenzaprine [Flexeril] 10 mg PO TID 03/15/15 GABAPENTIN [GABAPENTIN] 600 mg PO TID 03/15/15 QUEtiapine FUMARATE [SEROquel] 300 mg PO DAILY 03/15/15 busPIRone [Buspar (*)] 15 mg PO BID 12/06/15 clonazePAM [klonoPIN (*)] 0.5 - 1 mg PO DAILY PRN 12/06/15 levETIRAcetam [Keppra 500 mg (*)] 500 mg PO BID 12/06/15 Ibuprofen 800 mg PO TID PRN #20 tablet 04/09/16 Haldol 11/03/16 Risperdal 11/03/16 levETIRAcetam [Keppra 500 mg (*)] 500 mg PO BID #20 tab 01/30/17 Medical Decision Making ED Course/Re-evaluation: 36-year-old male with seizure disorder and alcohol withdrawal from the [facility]. Will give him Librium to go pack. Will also fill his Keppra prescription. Patient will be discharged with follow [facility]. - Data Points Medications Given: Discontinued Medications Chlordiazepoxide (Librium 25 Mg Prepack#6) 1 btl TAKEHOME EDNOW ONE Stop: 01/30/17 22:57 Last Admin: 01/30/17 23:09 Dose: 1 btl Chlordiazepoxide HCl (Librium) 25 mg PO EDNOW ONE Stop: 01/30/17 22:57 Last Admin: 01/30/17 23:09 Dose: 25 mg Levetiracetam (Keppra) 500 mg PO EDNOW ONE Stop: 01/30/17 22:58 Last Admin: 01/30/17 23:09 Dose: 500 mg Departure - Departure Disposition: Home, Routine, Self-Care Clinical Impression: Alcohol withdrawal Condition: Good Instructions: Alcohol Withdrawal (ED), Chlordiazepoxide (By mouth) Additional Instructions: Take the Keppra, 500 mg twice a day. Referrals: [facility],. [Clinic] - As per Instructions Prescriptions: levETIRAcetam [Keppra 500 mg (*)] 500 mg PO BID #20 tab
[2017-01-30] MEDS ORDERED: CHLORDIAZEPOXIDE 25MG PREPK#6 BTL TAKEHOME ONE (22:56)
[2017-01-30] MEDS ORDERED: chlordiazePOXIDE 25 MG CAP PO ONE (22:56)
[2017-01-30] MEDS ORDERED: levETIRAcetam 500 MG TAB PO ONE (22:57)
== END 2017-01-30 23:57 | disposition home or self-care (01) ==
DX: F10.239 Alcohol dependence with withdrawal, unspecified (principal); F17.200 Nicotine dependence, unspecified, uncomplicated

== ENCOUNTER 2017-03-24 03:02 | Emergency (ER) | payer MEDICAID, OTHER ==
[2017-03-24] MEDS ORDERED: NS 1,000 ML IV ONE (03:07)
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
[2017-03-24 03:32] LABS: PLATELET COUNT 200 10^3/uL (150-400)
[2017-03-24 08:03] VITALS: BP 107/72; PULSE 74; RESP 14; TEMP 97.9; O2SAT 98
== END 2017-03-24 10:06 | disposition home or self-care (01) ==
LOC: EDUNIT#
DX: F10.920 Alcohol use, unspecified with intoxication, uncomplicated (principal); F17.200 Nicotine dependence, unspecified, uncomplicated; E86.9 Volume depletion, unspecified
CPT/HCPCS: G0480

== ENCOUNTER 2017-03-28 18:11 | Emergency (ER) | payer MEDICAID ==
[2017-03-28] MEDS ORDERED: levETIRAcetam 1000MG/NACL 100 ML IV ONE (18:30)
[2017-03-28] MEDS ORDERED: NS 1,000 ML IV ONE (18:30)
[2017-03-28 18:45] LABS: PLATELET COUNT 184 10^3/uL (150-400)
--- NOTE | 2017-03-28 18:54 | EDPHY ---
General Narrative: CHIEF COMPLAINT: possible seizure HISTORY OF PRESENT ILLNESS: Patient arrives by EMS and is seen at time of arrival. He reportedly had a seizure the detention. This was reportedly witnessed and lasted several seconds. He was reportedly postictal time of arrival by EMS. No incontinence of bowel or bladder. No injury to the tongue. No chest pain. No shortness of breath. No abdominal pain. He is protecting his airway and no medications were given. He has a known seizure disorder and says he has not been on his Keppra for 1 week due to losing the prescription. He denies any alcohol withdrawal but does admit to alcohol ingestion today. REVIEW OF SYSTEMS: Ten systems reviewed and are negative unless otherwise noted in the HPI PCP: [facility] SPECIALISTS: None PAST MEDICAL HISTORY: Seizure disorder PAST SURGICAL HISTORY: No recent surgeries SOCIAL HISTORY: Homeless. Denies smoking or drug use. Does endorse occasional alcohol use most recently today and moderate intake FAMILY HISTORY: Noncontributory EXAMINATION General Appearance: Alert, no distress, unkempt. Head: normocephalic, atraumatic Eyes: Pupils equal and round, no conjunctival pallor or injection ENT, Mouth: Mucous membranes moist. No injury to the tongue. Airway is widely patent Neck: Normal inspection, supple, non-tender Respiratory: Lungs are clear to auscultation. No wheeze, rhonchi or crackles Cardiovascular: Regular rate and rhythm. No murmur Gastrointestinal: Abdomen is soft and nontender Back: non-tender, no bony abnormalities Neurological: GCS 15. Alert to person, place and time. Disoriented to scenario. Strength is 5/5 in all 4 limbs. No pronator drift. Skin: Warm and dry, no rash no petechiae or purpura Extremities: Nontender, no pedal edema Psychiatric: Mood and affect normal DIFFERENTIAL DIAGNOSES: Including but not limited to seizure, recurrent seizure, alcohol withdrawal seizure, dehydration, malingering MDM: 6:15 p.m. Reported Seizure in a patient with known seizure disorder who has been off of his Keppra 1 week. He is mildly postictal. He is in no acute distress. His airway is widely patent. No medications pre-hospital. Monitor closely. IV fluid ordered. IV Keppra ordered. Laboratory studies pending. No evidence of status epilepticus at this time. 6:40 p.m. Patient is ambulating in the emergency department without any difficulty and without the need of assistance. He is no longer postictal 7:15 p.m. Patient re-evaluated. No seizure activity in this department. I do feel he is stable for discharge home. I have loaded him with 1gram of IV Keppra. I have provided a refill prescription of his keppra. I have provided the personnel director physicians for him. He has voiced his dissatisfaction as he is homeless and want to stay in the emergency department. I informed him that we are unable to keep him here for this complaint he is in no need for admission at this time my pending. I do feel he is stable for discharge at this time. SUPERVISION: Patient was independently examined, but I discussed the case with my secondary supervising physician Dr. Flores - History Smoking Status: Current every day smoker - Objective Vital Signs: Initial Vital Signs Temperature (C) 97.9 F 03/28/17 18:26 Heart Rate 74 03/28/17 18:26 Respiratory Rate 16 03/28/17 18:26 Blood Pressure 134/74 H 03/28/17 18:26 O2 Sat (%) 96 03/28/17 18:26 O2 Delivery Mode Room Air Allergies/Adverse Reactions: trazodone Allergy (Verified 03/28/17 18:25) Home Medications: Medication Instructions Recorded CLONAZEPAM [CLONAZEPAM] 0.5 - 1 mg PO DAILY PRN 03/15/15 Cyclobenzaprine [Flexeril] 10 mg PO TID 03/15/15 GABAPENTIN [GABAPENTIN] 600 mg PO TID 03/15/15 QUEtiapine FUMARATE [SEROquel] 300 mg PO DAILY 03/15/15 busPIRone [Buspar (*)] 15 mg PO BID 12/06/15 clonazePAM [klonoPIN (*)] 0.5 - 1 mg PO DAILY PRN 12/06/15 Ibuprofen 800 mg PO TID PRN #20 tablet 04/09/16 Haldol 11/03/16 Risperdal 11/03/16 levETIRAcetam [Keppra 500 mg (*)] 500 mg PO BID #20 tab 01/30/17 levETIRAcetam [Keppra 500 mg (*)] 500 mg PO BID #20 tab 03/28/17 Departure - Departure Disposition: Home, Routine, Self-Care Clinical Impression: Seizure Alcohol intoxication Qualifiers: Complication of substance-induced condition: uncomplicated Qualified Code(s): F10.920 - Alcohol use, unspecified with intoxication, uncomplicated Condition: Good Instructions: Recurrent Seizures in Adults (ED) Additional Instructions: 1. Keppra medication as prescribed 2. Contact the on-call physician's as provided 3. ED precautions as discussed Referrals: Patient,NotPresent [Primary Care Provider] - As per Instructions Dhaval Gutierrez MD [Medical Doctor] - As per Instructions Man Guardado MD [Medical Doctor] - As per Instructions Prescriptions: levETIRAcetam [Keppra 500 mg (*)] 500 mg PO BID #20 tab
[2017-03-28 19:20] VITALS: RESP 18; O2SAT 95
[2017-03-28 20:10] VITALS: BP 132/56; PULSE 63; TEMP 98.6
== END 2017-03-28 20:04 | disposition home or self-care (01) ==
LOC: EDUNIT#
DX: G40.909 Epilepsy, unspecified, not intractable, without status epilepticus (principal); F10.920 Alcohol use, unspecified with intoxication, uncomplicated; E86.9 Volume depletion, unspecified; F17.200 Nicotine dependence, unspecified, uncomplicated
CPT/HCPCS: 96374; G0480; J1953

== ENCOUNTER 2017-04-02 23:22 | Emergency (ER) | payer MEDICAID ==
[2017-04-02 23:28] VITALS: TEMP 98.1
[2017-04-02] MEDS ORDERED: NS 1,000 ML IV ONE (23:56)
[2017-04-03] MEDS ORDERED: QUEtiapine FUMARATE 300 MG TAB PO SCH
[2017-04-03] MEDS ORDERED: levETIRAcetam 500 MG TAB PO SCH
--- NOTE | 2017-04-03 00:29 | EDPHY ---
H & P Time Seen by Provider: 04/03/17 00:05 HPI/ROS: CHIEF COMPLAINT: Medication request HISTORY OF PRESENT ILLNESS: 36-year-old homeless male presents to the emergency department with request of medication. The patient has a history of schizophrenia. He has been [facility] the [facility]. He is requesting prescription for his Seroquel and Keppra. He has gone without this medication for a few days. Currently has no physical complaints. Denies chest pain or difficulty breathing. Denies abdominal pain. No reported trauma. He does admit to drinking alcohol. REVIEW OF SYSTEMS: Constitutional: No fever, no chills. Eyes: No double or blurry vision. ENT: No sore throat. Respiratory: No cough, no shortness of breath. Cardiac: No chest pain. Gastrointestinal: No abdominal pain, vomiting or diarrhea. Genitourinary: No dysuria. Musculoskeletal: No neck or back pain. Skin: No rashes. Neurological: No headache. Past Medical/Surgical History: Bipolar, schizoaffective disorder Social History: Homeless Smoking Status: Current every day smoker Physical Exam: General Appearance: Alert, no distress. 190/103 Eyes: Pupils equal and round. Extraocular motions are all intact. ENT: Mouth: Mucous membranes moist. Respiratory: No wheezing, rhonchi, or rales, lungs are clear to auscultation. Cardiovascular: Regular rate and rhythm. Gastrointestinal: Abdomen is soft and nontender, no masses, no rebound or guarding, bowel sounds normal. Neurological: Alert and oriented x 3, cranial nerves II through XII grossly intact Skin: Warm and dry, no rashes. Musculoskeletal: Nontender to palpate along the cervical, thoracic or lumbar spine. Neck is supple. Extremities: Full range of motion and no peripheral edema. Psychiatric: Patient is oriented X 3, there is no agitation. Constitutional: Initial Vital Signs Temperature (C) 36.7 C 04/02/17 23:26 Heart Rate 77 04/02/17 23:26 Respiratory Rate 16 04/02/17 23:26 Blood Pressure 190/103 H 04/02/17 23:26 O2 Sat (%) 98 04/02/17 23:26 O2 Delivery Mode Room Air Allergies/Adverse Reactions: trazodone Allergy (Verified 04/02/17 23:28) Home Medications: Medication Instructions Recorded QUEtiapine FUMARATE [SEROquel] 300 mg PO DAILY 03/15/15 clonazePAM [klonoPIN (*)] 0.5 - 1 mg PO DAILY PRN 12/06/15 Ibuprofen 800 mg PO TID PRN #20 tablet 04/09/16 levETIRAcetam [Keppra 500 mg (*)] 500 mg PO BID #20 tab 01/30/17 levETIRAcetam [Keppra 500 mg (*)] 500 mg PO BID #20 tab 03/28/17 QUEtiapine FUMARATE [Seroquel 300 mg PO DAILY #5 tab 04/03/17 300mg (*)] levETIRAcetam [Keppra 500 mg (*)] 500 mg PO BID #10 tab 04/03/17 Medical Decision Making ED Course/Re-evaluation: 36-year-old male with a history of bipolar and schizophrenia presents requesting prescription for Seroquel and Keppra that he will take while he is staying at the addiction [facility] for the next few days. He was instructed to follow up with his psychiatrist. He will return if he has any other change in symptoms or feels worse. Differential Diagnosis: Depression including functional and major depression, situational depression, medication side effect, drugs and alcohol abuse. - Data Points Medications Given: Discontinued Medications Chlordiazepoxide (Librium 25 Mg Prepack#6) 1 btl TAKEHOME EDNOW ONE Stop: 04/03/17 00:37 Last Admin: 04/03/17 00:43 Dose: 1 btl Chlordiazepoxide HCl (Librium) 25 mg PO EDNOW ONE Stop: 04/03/17 00:37 Last Admin: 04/03/17 00:43 Dose: 25 mg Sodium Chloride (Ns) 1,000 mls @ 0 mls/hr IV ONCE ONE PRN Reason: Wide Open Stop: 04/02/17 23:59 Last Admin: 04/03/17 00:01 Dose: Not Given Departure - Departure Disposition: Home, Routine, Self-Care Condition: Good Instructions: Chlordiazepoxide/Clidinium (By mouth), Methamphetamine Abuse (ED) Additional Instructions: MEDICATIONS FILLED IN [facility] AND SENT WITH PT TO THE [facility] FOR FUTURE USE Referrals: [facility],. [Clinic] - As per Instructions Prescriptions: levETIRAcetam [Keppra 500 mg (*)] 500 mg PO BID #10 tab QUEtiapine FUMARATE [Seroquel 300mg (*)] 300 mg PO DAILY #5 tab
[2017-04-03] MEDS ORDERED: CHLORDIAZEPOXIDE 25MG PREPK#6 BTL TAKEHOME ONE (00:36)
[2017-04-03] MEDS ORDERED: chlordiazePOXIDE 25 MG CAP PO ONE (00:36)
[2017-04-03 01:30] VITALS: BP 139/78; PULSE 99; RESP 18; O2SAT 96
== END 2017-04-03 01:15 | disposition home or self-care (01) ==
DX: Z76.0 Encounter for issue of repeat prescription (principal); F20.9 Schizophrenia, unspecified; F17.200 Nicotine dependence, unspecified, uncomplicated

== ENCOUNTER 2017-04-04 02:15 | Emergency (ER) | payer MEDICAID ==
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
[2017-04-04 03:34] VITALS: BP 144/84; PULSE 104; RESP 18; TEMP 98.1; O2SAT 96
== END 2017-04-04 03:39 ==
DX: R20.8 Other disturbances of skin sensation (principal); T26.62XA Corrosion of cornea and conjunctival sac, left eye, initial encounter; T65.894A Toxic effect of other specified substances, undetermined, initial encounter; F17.200 Nicotine dependence, unspecified, uncomplicated; T26.61XA Corrosion of cornea and conjunctival sac, right eye, initial encounter; X58.XXXA Exposure to other specified factors, initial encounter; Y93.89 Activity, other specified

== ENCOUNTER 2017-04-07 21:16 | Emergency (ER) | payer MEDICAID ==
[2017-04-07 21:37] VITALS: TEMP 98.2
[2017-04-07 22:03] VITALS: O2SAT 94
[2017-04-07] MEDS ORDERED: IBUPROFEN 600 MG TAB PO ONE (22:20)
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
[2017-04-07 23:07] VITALS: BP 123/84; PULSE 68; RESP 18
== END 2017-04-07 23:07 | disposition home or self-care (01) ==
DX: S20.212A Contusion of left front wall of thorax, initial encounter (principal); F17.200 Nicotine dependence, unspecified, uncomplicated; Y09 Assault by unspecified means

== ENCOUNTER 2017-04-26 22:28 | Emergency (ER) | payer MEDICAID ==
[2017-04-26] MEDS ORDERED: CHLORDIAZEPOXIDE 25MG PREPK#6 BTL TAKEHOME ONE (22:36)
--- NOTE | 2017-04-26 22:36 | EDPHY ---
H & P Time Seen by Provider: 04/26/17 22:45 HPI/ROS: HPI CHIEF COMPLAINT: Alcohol intoxication HISTORY OF PRESENT ILLNESS: Patient is a 36-year-old male, familiar to myself in the emergency room as a scene you have multiple times previously, he is homeless, history of schizoaffective disorder, and daily alcohol use. He states that he drank a large amount of vodka this evening. Last drink was an hour ago. [facility] as he felt like he was going to withdrawal. States he felt shaky. He denies any pain anywhere. Denies chest pain or shortness of breath. Upon arrival to the emergency room he has stable vitals. He does smell of alcohol and appears to be intoxicated. I do not see any evidence of withdrawal on exam. Past Medical History: Schizoaffective disorder, alcoholism, daily alcohol use usually drinks vodka, seizures and takes Keppra. Past Surgical History: No recent surgery. Social History: Homeless, daily alcohol use. Family History: Noncontributory ROS REVIEW OF SYSTEMS: A comprehensive 10 point review of systems is otherwise negative aside from elements mentioned in the history of present illness. Exam Constitutional smells of alcohol, triage nursing summary reviewed, vital signs reviewed, awake/alert. Eyes normal conjunctivae and sclera, EOMI, PERRLA. HENT normal inspection, atraumatic, moist mucus membranes, no epistaxis, neck supple/ no meningismus, no raccoon eyes. Respiratory clear to auscultation bilaterally, normal breath sounds, no respiratory distress, no wheezing. Cardiovascular rate normal, regular rhythm, no murmur, no edema, distal pulses normal. Gastrointestinal soft, non-tender, no rebound, no guarding, normal bowel sounds, no distension, no pulsatile mass. Genitourinary no CVA tenderness. Musculoskeletal no midline vertebral tenderness, full range of motion, no calf swelling, no tenderness of extremities, no meningismus, good pulses, neurovascularly intact. Skin pink, warm, & dry, no rash, skin atraumatic. Neurologic intoxicated. awake, alert and oriented x 3, AAOx3, moves all 4 extremities equally, motor intact, sensory intact, CN II-XII intact, normal cerebellar, normal vision, normal speech. Psychiatric normal mood/affect. Heme/Lymph/Immune no lymphadenopathy. Differential Diagnosis: Includes but is not limited to in a particular order acute alcohol intoxication, dehydration, electrolyte abnormality, homelessness Medical Decision Making: Plan for this patient will touch base with the [facility], to see if he can go there. Will provide Librium. Additionally states he is out of his Keppra. I will prescribe him a new Keppra prescription. Re-evaluation: 2233: Breath alcohol 325 upon arrival. 2309: Patient's vital signs are stable. No evidence of alcohol withdrawal. I did give him normal dose of Keppra 500 mg p. O.. His pulse Keppra prescription. Additionally Librium take-home pack. He is agreeable to go to the [facility] for alcohol detox. No evidence of withdrawal at this time. Source: Patient, EMS - Medical/Surgical History Hx Asthma: No Hx Chronic Respiratory Disease: No Hx Diabetes: No Hx Cardiac Disease: No Hx Renal Disease: No Hx Cirrhosis: No Hx Alcoholism: No Hx HIV/AIDS: No Hx Splenectomy or Spleen Trauma: No Other PMH: depression, epilepsy, ETOH ABUSE , anxiety, schizoaffective. - Social History Smoking Status: Current every day smoker Constitutional: Initial Vital Signs Temperature (C) 37.1 C 04/26/17 22:41 Heart Rate 90 04/26/17 22:41 Respiratory Rate 16 04/26/17 22:41 Blood Pressure 146/100 H 04/26/17 22:41 O2 Sat (%) 95 04/26/17 22:41 O2 Delivery Mode Room Air Allergies/Adverse Reactions: trazodone Allergy (Verified 04/02/17 23:28) Home Medications: Medication Instructions Recorded levETIRAcetam [Keppra 500 mg (*)] 500 mg PO BID #20 tab 01/30/17 QUEtiapine FUMARATE [Seroquel 300 mg PO DAILY #5 tab 04/03/17 300mg (*)] levETIRAcetam [Keppra 500 mg (*)] 500 mg PO BID #20 tab 04/26/17 Medical Decision Making - Data Points Medications Given: Discontinued Medications Chlordiazepoxide (Librium 25 Mg Prepack#6) 1 btl TAKEHOME EDNOW ONE Stop: 04/26/17 22:37 Last Admin: 04/26/17 22:57 Dose: 1 btl Levetiracetam (Keppra) 500 mg PO EDNOW ONE Stop: 04/26/17 23:04 Last Admin: 04/26/17 23:11 Dose: 500 mg Departure - Departure Disposition: Home, Routine, Self-Care Clinical Impression: Alcoholic intoxication Qualifiers: Complication of substance-induced condition: uncomplicated Qualified Code(s): F10.920 - Alcohol use, unspecified with intoxication, uncomplicated Condition: Good Instructions: Chlordiazepoxide (By mouth), Alcohol Intoxication (ED) Referrals: NONE *PRIMARY CARE P,. [Primary Care Provider] - As per Instructions Prescriptions: levETIRAcetam [Keppra 500 mg (*)] 500 mg PO BID #20 tab
[2017-04-26 22:44] VITALS: RESP 16
[2017-04-26] MEDS ORDERED: levETIRAcetam 500 MG TAB PO ONE (23:03)
[2017-04-26 23:23] VITALS: BP 139/86; PULSE 89; TEMP 97.9; O2SAT 93
== END 2017-04-26 23:23 | disposition home or self-care (01) ==
LOC: EDUNIT#
DX: F10.920 Alcohol use, unspecified with intoxication, uncomplicated (principal); F17.200 Nicotine dependence, unspecified, uncomplicated

== ENCOUNTER 2017-06-05 12:51 | Emergency (ER) | payer MEDICAID ==
--- NOTE | 2017-06-05 13:03 | EDPHY ---
H & P - Medical/Surgical History Hx Asthma: No Hx Chronic Respiratory Disease: No Hx Diabetes: No Hx Cardiac Disease: No Hx Renal Disease: No Hx Cirrhosis: No Hx Alcoholism: No Hx HIV/AIDS: No Hx Splenectomy or Spleen Trauma: No Other PMH: depression, epilepsy, ETOH ABUSE , anxiety, schizoaffective. - Social History Smoking Status: Current every day smoker Time Seen by Provider: 06/05/17 12:56 HPI/ROS: CHIEF COMPLAINT: Right upper quadrant pain HISTORY OF PRESENT ILLNESS: 36-year-old homeless male with no history of abdominal surgeries, history of alcoholism, arrives by ambulance after 911 was called because the patient was complaining of right upper quadrant pain since this morning. The positive heavy daily alcohol use, positive of 1 L of vodka this morning. No seizure. No nausea or vomiting. No back or flank pain. No hallucination. REVIEW OF SYSTEMS: A ten point review of systems was performed and is negative with the exception of the items mentioned in the HPI PAST MEDICAL & SURGICAL HISTORY: History of alcoholism. History of seizure disorder. Compliant with medications. SOCIAL HISTORY: Homeless. Positive daily tobacco. Positive alcohol use today. PHYSICAL EXAM (Prior to examination, patient consented to physical exam, hands were washed and my usual and customary physical exam procedures followed) 1) GENERAL: Well-developed, well-nourished, alert and oriented. Somnolent. Smells of alcohol. 2) HEAD: Normocephalic, atraumatic 3) HEENT: Pupils equal, round, reactive to light bilaterally. Sclera anicteric. 4) NECK: Full range of motion, no meningeal signs. 5) LUNGS: Clear auscultation bilaterally, no wheezes, no rhonchi, no retractions. 6) HEART: Regular rate and rhythm, no murmur, no heave, no gallop. 7) ABDOMEN: No guarding, no rebound, no focal tenderness, negative McBurney's, positive Roberts's, negative Rovsing's, negative peritoneal sign, 8) MUSCULOSKELETAL: Moving all extremities, no focal areas of tenderness, no obvious trauma. No peripheral edema or discoloration. 9) BACK: No CVA tenderness, no midline vertebral tenderness, no fluctuance, no step-off, no obvious trauma, no visual or palpable abnormality. 10) SKIN: No rash, no petechiae. 11) Psychiatric: Patient is oriented X 3, there is no agitation. DIFFERENTIAL DIAGNOSIS: In no particular order, including but not limited to biliary colic, cholecystitis, peptic ulcer disease, pancreatitis, and gastroenteritis. This is a partial list of diagnoses considered. These considerations are based on history, physical exam, past history and reassessment. (Tori Guzman) Constitutional: Initial Vital Signs Temperature (C) 36.7 C 06/05/17 12:51 Heart Rate 86 06/05/17 12:51 Respiratory Rate 16 06/05/17 12:51 Blood Pressure 142/93 H 06/05/17 12:51 O2 Sat (%) 94 06/05/17 12:51 O2 Delivery Mode Room Air Allergies/Adverse Reactions: trazodone Allergy (Verified 06/05/17 13:03) Home Medications: Medication Instructions Recorded levETIRAcetam [Keppra 500 mg (*)] 500 mg PO BID #20 tab 01/30/17 QUEtiapine FUMARATE [Seroquel 300 mg PO DAILY #5 tab 04/03/17 300mg (*)] levETIRAcetam [Keppra 500 mg (*)] 500 mg PO BID #20 tab 04/26/17 Medical Decision Making - Diagnostics Imaging Results: Imaging Impressions Abdomen Ultrasound 06/05/17 13:01 Impression: Normal RUQ ultrasound. Findings and recommendations discussed with Tori Guzman at 1433 hour, . Final report concurs with initial preliminary interpretation. Imaging Impressions Abdomen Ultrasound 06/05/17 13:01 Impression: Normal RUQ ultrasound. Findings and recommendations discussed with Tori Guzman at 1433 hour, . Final report concurs with initial preliminary interpretation. Images reviewed myself (Tori Guzman) ED Course/Re-evaluation: Re-evaluation at 2:36 p.m.. He is sleeping, I am able to wake him.. His alcohol level is elevated 436. I am unable to elicit abdominal pain at this time. Discussed with him his imaging studies. Plan will be sobering in the ER and [facility]. 3:19 p.m.: Patient ambulating without assistance, stable steady gait, clear speech pattern, awake alert oriented person place time events. Plan will be discharge to [facility]. (Tori Guzman) Other Provider: PHYSICIAN DOCUMENTATION: The patient was evaluated and managed by the Physician Topographical Engineer and myself. I have reviewed the chart and agree with the findings and plan of care as documented. In addition, I examined the patient myself at 1346. History confirmed as recent alcohol, abdominal pain. Physical findings as follows: Patient is relatively somnolent and appears clinically intoxicated. Abdomen is nontender with no right upper quadrant tenderness or Roberts sign. I am the secondary supervising physician. (Deandre Fernandes) - Data Points Laboratory Results: Laboratory Results 06/05/17 12:51 06/05/17 12:51 06/05/17 06/05/17 06/05/17 13:03 12:51 12:51 WBC 9.31 10^3/uL 10^3/uL (3.80-9.50) RBC 4.92 10^6/uL 10^6/uL (4.40-6.38) Hgb 15.8 g/dL g/dL (13.7-17.5) Hct 46.3 % % (40.0-51.0) MCV 94.1 fL fL (81.5-99.8) MCH 32.1 pg pg (27.9-34.1) MCHC 34.1 g/dL g/dL (32.4-36.7) RDW 14.6 % % (11.5-15.2) Plt Count 146 10^3/uL L 10^3/uL (150-400) MPV 9.5 fL fL (8.7-11.7) Neut % (Auto) 72.3 % % (39.3-74.2) Lymph % (Auto) 17.0 % % (15.0-45.0) [place] % (Auto) 9.8 % % (4.5-13.0) Eos % (Auto) 0.2 % L % (0.6-7.6) Baso % (Auto) 0.4 % % (0.3-1.7) Nucleat RBC Rel Count 0.0 % % (0.0-0.2) Absolute Neuts (auto) 6.73 10^3/uL H 10^3/uL (1.70-6.50) Absolute Lymphs (auto) 1.58 10^3/uL 10^3/uL (1.00-3.00) Absolute Monos (auto) 0.91 10^3/uL H 10^3/uL (0.30-0.80) Absolute Eos (auto) 0.02 10^3/uL L 10^3/uL (0.03-0.40) Absolute Basos (auto) 0.04 10^3/uL 10^3/uL (0.02-0.10) Absolute Nucleated RBC 0.00 10^3/uL 10^3/uL (0-0.01) Immature Gran % 0.3 % % (0.0-1.1) Immature Gran # 0.03 10^3/uL 10^3/uL (0.00-0.10) Sodium 152 mEq/L H mEq/L (135-145) Potassium 3.7 mEq/L mEq/L (3.5-5.2) Chloride 111 mEq/L H mEq/L (97-110) Carbon Dioxide 24 mEq/l mEq/l (22-31) Anion Gap 17 mEq/L H mEq/L (8-16) BUN 15 mg/dL mg/dL (7-23) Creatinine 0.7 mg/dL mg/dL (0.7-1.3) Estimated GFR > 60 Glucose 81 mg/dL mg/dL (70-100) Calcium 8.8 mg/dL mg/dL (8.5-10.4) Total Bilirubin 0.4 mg/dL mg/dL (0.1-1.4) Conjugated Bilirubin 0.3 mg/dL mg/dL (0.0-0.5) Unconjugated Bilirubin 0.1 mg/dL mg/dL (0.0-1.1) AST 23 IU/L IU/L (17-59) ALT 19 IU/L L IU/L (21-72) Alkaline Phosphatase 82 IU/L IU/L (38-126) Total Protein 7.1 g/dL g/dL (6.3-8.2) Albumin 4.4 g/dL g/dL (3.5-5.0) Lipase 80 IU/L IU/L (23-300) Ethyl Alcohol 438 mg/dL H* mg/dL (0-10) Departure - Departure Disposition: Home, Routine, Self-Care Clinical Impression: Alcoholic intoxication Qualifiers: Complication of substance-induced condition: uncomplicated Qualified Code(s): F10.920 - Alcohol use, unspecified with intoxication, uncomplicated Condition: Good Instructions: Alcohol Intoxication (ED) Additional Instructions: Consider moderation from alcohol use. Referrals: [facility],. [Clinic] - As per Instructions
[2017-06-05 13:07] LABS: PLATELET COUNT 146 10^3/uL (150-400)
[2017-06-05 15:28] VITALS: BP 136/82
== END 2017-06-05 15:31 | disposition home or self-care (01) ==
LOC: EDUNIT#
DX: F10.920 Alcohol use, unspecified with intoxication, uncomplicated (principal); F17.200 Nicotine dependence, unspecified, uncomplicated
CPT/HCPCS: G0480

== ENCOUNTER 2017-06-13 22:58 | Emergency (ER) | payer MEDICAID ==
[2017-06-13] MEDS ORDERED: NALOXONE HCL 0.4 MG/ML INJ IVP ONE (23:08)
[2017-06-13] MEDS ORDERED: NALOXONE HCL 0.4 MG/ML INJ ONE (23:08)
[2017-06-13 23:15] LABS: PLATELET COUNT 189 10^3/uL (150-400)
--- NOTE | 2017-06-14 00:44 | EDPHY ---
H & P Stated Complaint: POSS. SZ AT RETIREMENT WHILE WALKING BACK INSIDE, RECENT DETOX DIANA Time Seen by Provider: 06/13/17 23:00 HPI/ROS: Chief Complaint: Altered mental status HPI: 36-year-old homeless male brought in from the [facility] [place] [facility] with altered mental status. Per EMS report the patient said he was having a seizure and then stood up and was walked by staff into the building. On EMS arrival the patient eyes are open but he is not answering any questions. Does have a history of heavy alcohol use in the past. Patient is not answering questions and history is limited at this time. ROS: Not obtainable secondary to the patient not answering questions PMH: Unknown Social History: No smoking, daily heavy alcohol, no recreational drug use Family History: non-contributory Physical Exam: Gen: Eyes open, following commands but not answering questions, smells strongly of alcohol HEENT: Nose: no rhinorrhea Eyes: PERRLA, EOMI Mouth: Moist mucosa Neck: Supple, no JVD Chest: nontender, lungs clear to auscultation Heart: S1, S2 normal, no murmur Abd: Soft, non-tender, no guarding Back: no CVA tenderness, no midline tenderness Ext: no edema, non-tender Skin: no rash Neuro: CN II-XII intact, Sensation grossly intact, Strength 5/5 in bilateral upper and lower extremities - Personal History Current Tetanus/Diphtheria Vaccine: Unsure Current Tetanus Diphtheria and Acellular Pertussis (TDAP): Unsure - Medical/Surgical History Hx Asthma: No Hx Chronic Respiratory Disease: No Hx Diabetes: No Hx Cardiac Disease: No Hx Renal Disease: No Hx Cirrhosis: No Hx Alcoholism: No Hx HIV/AIDS: No Hx Splenectomy or Spleen Trauma: No Other PMH: depression, epilepsy, ETOH ABUSE , anxiety, schizoaffective. - Social History Smoking Status: Current every day smoker Constitutional: Initial Vital Signs Temperature (C) 36.5 C 06/13/17 22:58 Heart Rate 95 06/13/17 22:58 Respiratory Rate 16 06/13/17 22:58 Blood Pressure 121/81 H 06/13/17 22:58 O2 Sat (%) 95 06/13/17 22:58 O2 Delivery Mode Room Air Allergies/Adverse Reactions: trazodone Allergy (Verified 06/13/17 23:06) Home Medications: Medication Instructions Recorded levETIRAcetam [Keppra 500 mg (*)] 500 mg PO BID #20 tab 01/30/17 QUEtiapine FUMARATE [Seroquel 300 mg PO DAILY #5 tab 04/03/17 300mg (*)] levETIRAcetam [Keppra 500 mg (*)] 500 mg PO BID #20 tab 04/26/17 chlordiazePOXIDE [Librium 25 mg 25 mg PO TID 06/13/17 (*)] Medical Decision Making ED Course/Re-evaluation: 36-year-old homeless male well known to this emergency department presenting with altered mental status. Blood alcohol is 490s. Will allow him to sober up and re-evaluate him. Patient is now awake. He is answering questions. He is without complaint. He is ambulating unassisted to the bathroom. Patient is medically cleared for the arc. - Data Points Laboratory Results: Laboratory Results 06/13/17 23:08 06/13/17 23:08 06/13/17 06/13/17 23:08 23:08 WBC 10.01 10^3/uL H 10^3/uL (3.80-9.50) RBC 4.97 10^6/uL 10^6/uL (4.40-6.38) Hgb 15.8 g/dL g/dL (13.7-17.5) Hct 46.6 % % (40.0-51.0) MCV 93.8 fL fL (81.5-99.8) MCH 31.8 pg pg (27.9-34.1) MCHC 33.9 g/dL g/dL (32.4-36.7) RDW 13.9 % % (11.5-15.2) Plt Count 189 10^3/uL 10^3/uL (150-400) MPV 9.6 fL fL (8.7-11.7) Neut % (Auto) 70.1 % % (39.3-74.2) Lymph % (Auto) 19.8 % % (15.0-45.0) [place] % (Auto) 8.4 % % (4.5-13.0) Eos % (Auto) 0.7 % % (0.6-7.6) Baso % (Auto) 0.6 % % (0.3-1.7) Nucleat RBC Rel Count 0.0 % % (0.0-0.2) Absolute Neuts (auto) 7.02 10^3/uL H 10^3/uL (1.70-6.50) Absolute Lymphs (auto) 1.98 10^3/uL 10^3/uL (1.00-3.00) Absolute Monos (auto) 0.84 10^3/uL H 10^3/uL (0.30-0.80) Absolute Eos (auto) 0.07 10^3/uL 10^3/uL (0.03-0.40) Absolute Basos (auto) 0.06 10^3/uL 10^3/uL (0.02-0.10) Absolute Nucleated RBC 0.00 10^3/uL 10^3/uL (0-0.01) Immature Gran % 0.4 % % (0.0-1.1) Immature Gran # 0.04 10^3/uL 10^3/uL (0.00-0.10) Sodium 148 mEq/L H mEq/L (135-145) Potassium 3.9 mEq/L mEq/L (3.5-5.2) Chloride 106 mEq/L mEq/L (97-110) Carbon Dioxide 24 mEq/l mEq/l (22-31) Anion Gap 18 mEq/L H mEq/L (8-16) BUN 14 mg/dL mg/dL (7-23) Creatinine 0.7 mg/dL mg/dL (0.7-1.3) Estimated GFR > 60 Glucose 89 mg/dL mg/dL (70-100) Calcium 8.9 mg/dL mg/dL (8.5-10.4) Ethyl Alcohol 492 mg/dL H* mg/dL (0-10) Medications Given: Discontinued Medications Naloxone HCl (Narcan) 0.4 mg IVP EDNOW ONE Stop: 06/13/17 23:09 Last Admin: 06/13/17 23:09 Dose: 0.4 mg Departure - Departure Disposition: Home, Routine, Self-Care Clinical Impression: Alcoholic intoxication Condition: Good Instructions: Alcohol Intoxication (ED), Chlordiazepoxide (By mouth) Referrals: NONE *PRIMARY CARE P,. [Primary Care Provider] - As per Instructions
[2017-06-14] MEDS ORDERED: CHLORDIAZEPOXIDE 25MG PREPK#6 BTL TAKEHOME ONE (04:20)
[2017-06-14 04:36] VITALS: BP 121/70
== END 2017-06-14 04:34 | disposition home or self-care (01) ==
LOC: EDUNIT#
DX: F10.129 Alcohol abuse with intoxication, unspecified (principal); F17.200 Nicotine dependence, unspecified, uncomplicated
CPT/HCPCS: 96374; G0480; J2310